=== PATIENT | female | born 1960 | race African-American/Black ===

== ENCOUNTER 2021-11-11 08:06 | Outpatient (CLI) | payer MEDICARE, MEDICAID, SELFPAY ==
--- NOTE | 2021-11-11 | EST_ITS ---
Patient Info Name: Madeline Castaneda Age: 61 years : 1960 Gender: Female Ht: 66 in Wt: 260 lbs BSA: 2.40 m2 HR: 69 bpm BP: 142 / 72 mmHg Heart Rhythm: Sinus Rhythm Exam Date: 11/11/2021 9:26 AM Exam Location: [facility] Stress Patient Status: Outpatient Admit Date: 11/11/2021 Staff Ordering Physician: rosetta Fulton Attending Provider: rosetta Fulton Exercise Technologist: Nicolette Traore CT Exercise Physician: Abhinav De Leon MD Exam Type: CA stress donna w NM Study Info Indications I50.22 - Chronic systolic (congestive) heart failure R06.02 - Shortness of breath A regadenoson stress test was performed. Summary 1. No abnormal ST-T wave changes with lexiscan. 2. Please correlate with nuclear medicine images, reported separately. Protocol: Lexiscan Stress ECG Details Stage: REST Duration (min): 0 min : 57 sec HR (bpm): 70 SBP (mmHg): 142 DBP (mmHg): 72 Stage: REST Duration (min): 7 min : 16 sec HR (bpm): 74 SBP (mmHg): 142 DBP (mmHg): 72 Stage: STAGE 1 Duration (min): 1 min : 0 sec HR (bpm): 81 SBP (mmHg): 135 DBP (mmHg): 93 Stage: RECOVERY Duration (min): 1 min : 0 sec HR (bpm): 90 SBP (mmHg): 135 DBP (mmHg): 93 Stage: RECOVERY Duration (min): 2 min : 0 sec HR (bpm): 85 SBP (mmHg): 135 DBP (mmHg): 93 Stage: RECOVERY Duration (min): 3 min : 0 sec HR (bpm): 85 SBP (mmHg): 132 DBP (mmHg): 63 Stage: RECOVERY Duration (min): 3 min : 4 sec HR (bpm): 85 SBP (mmHg): 132 DBP (mmHg): 63 Rest HR: 74 bpm Peak HR: 92 bpm Rest Sys BP: 142 mmHg Peak Sys BP: 135 mmHg Max Pred HR: 159 bpm % Max Pred HR: 58 % Target HR: 135 bpm Max RPP: 12,420 bpm*mmHg Target HR Summary: Hemodynamic response to exercise was normal BP Response: Normal blood pressure response Total Time: 1 min : 0 sec Rest Frankel BP: 72 mmHg Peak Frankel BP: 93 mmHg Total Dose: 0.4 mg Resting ECG Normal sinus rhythm - normal ECG. Stress ECG No abnormal ST/T wave changes with exercise. Arrhythmias Occasional PVCs. Report Signatures
--- NOTE | ~2021-11-11 | US_ITS ---
EXAMINATION: US arterial duplex LE DATE: 11/11/2021 12:24 INDICATION: Lower limb pain. Hyperlipidemia. Hypertension. TECHNIQUE: Multiple grayscale and Doppler ultrasound images of the arteries of the bilateral lower li mbs were obtained. COMPARISON: None FINDINGS: Right lower limb: Triphasic waveforms at the right common femoral, profunda femoral and femoral arteries and biphasic w aveforms of the right popliteal, posterior tibial, dorsalis pedis and anterior tibial arteries, all w ith brisk systolic upstrokes. Minimal scattered atherosclerotic plaques. No evident hemodynamically s ignificant stenosis on grayscale imaging. Left lower limb: Triphasic waveform at the left common femoral artery and biphasic waveforms at the left profunda femo ral, femoral, popliteal, posterior tibial, dorsalis pedis and anterior tibial arteries, all with bris k systolic upstrokes. Minimal scattered atherosclerotic plaque with no evident minimally significant stenosis on grayscale imaging. IMPRESSION: 1. Minimal scattered atherosclerotic plaque without evident hemodynamically significant stenosis in t he arteries of the bilateral lower limbs with brisk systolic upstrokes throughout the arteries of bot h lower limbs. Reviewed, dictated and finalized at location B. IMPRESSION: 1. Minimal scattered atherosclerotic plaque without evident hemodynamically sig nificant stenosis in the arteries of the bilateral lower limbs with brisk systo lic upstrokes throughout the arteries of both lower limbs.
--- NOTE | ~2021-11-11 | NM_ITS ---
EXAMINATION: NM donna stress w perfusion DATE: 11/11/2021 10:33 INDICATION: Family history of myocardial infarction TECHNIQUE: Rest images were obtained following intravenous administration of 9.86 mCi Tc99m tetrofosm in (Myoview). The patient was infused intravenously with Lexiscan (Regadenoson). Then, 31.3 mCi Tc99m tetrofosmin (Myoview) was administered intravenously, and stress images were obtained. Data was norma nstructed into short axis and horizontal and vertical long axis SPECT images. Gated SPECT images were also obtained. COMPARISON: None. FINDINGS: There is no definite reversible or fixed perfusion abnormality to suggest ischemia or infar ction. There is normal left ventricular chamber size, wall motion and ejection fraction. Left ventr icular ejection fraction measures >70%. IMPRESSION: 1. Normal myocardial perfusion at rest and during stress. 2. Left ventricular ejection fraction measuring >70%. Reviewed, dictated and finalized at location B.
== END 2021-11-11 08:07 | disposition home or self-care (01) ==
PROVIDERS: PCP Nurse Practitioner Family
DX: I11.0 Hypertensive heart disease with heart failure (principal); M79.661 Pain in right lower leg; E78.5 Hyperlipidemia, unspecified; I70.203 Unspecified atherosclerosis of native arteries of extremities, bilateral legs; Z82.49 Family history of ischemic heart disease and other diseases of the circulatory system; Z13.6 Encounter for screening for cardiovascular disorders; R06.02 Shortness of breath; M79.89 Other specified soft tissue disorders; R60.0 Localized edema; M79.604 Pain in right leg; I50.22 Chronic systolic (congestive) heart failure; Z51.81 Encounter for therapeutic drug level monitoring; Z79.899 Other long term (current) drug therapy; I49.3 Ventricular premature depolarization
CPT/HCPCS: 78452; 93017; 93925; A9502; J2785

== ENCOUNTER 2021-11-20 09:02 | Outpatient (CLI) | payer MEDICARE, MEDICAID, SELFPAY ==
--- NOTE | ~2021-11-20 | US_ITS ---
EXAMINATION: US venous doppler [facility] DATE: 11/20/2021 10:21 INDICATION: Right lower limb pain. Bilateral lower limb swelling. TECHNIQUE: Grayscale ultrasound images without and with compression and Doppler ultrasound images of the bilateral lower extremity veins were obtained. COMPARISON: None. FINDINGS: The visualized portions of right common femoral vein, profunda (deep) femoral vein, femoral vein, pop liteal vein, posterior tibial veins, peroneal veins, gastrocnemius vein and greater saphenous vein ou tflow are patent. Right standing venous mapping: reflux seconds duration; vein size. Greater saphenous origin: 0 seconds; 6.9 mm. Greater saphenous mid thigh:------ 0 seconds; 3.7 mm. Greater saphenous below knee:--- 0 seconds; 2.2 mm. Lesser saphenous proximally:------ 0 seconds; 2.5 mm. Lesser saphenous distally: 0 seconds; 2.4 mm. The visualized portions of left common femoral vein, profunda femoral vein, femoral vein, popliteal v ein, posterior tibial veins, peroneal veins, gastrocnemius vein and greater saphenous vein outflow ar e patent. Left standing venous mapping: reflux seconds duration; vein size. Greater saphenous origin: 1.7 seconds; 8.0 mm. Greater saphenous high thigh:----- 3.3 seconds; 11.0 mm. Greater saphenous mid thigh:------ 4.5 seconds; 5.6 mm. Greater saphenous low thigh:------ >4.7 seconds; 4.4 mm. Greater saphenous below knee:--- >4.5 seconds; 2.8 mm. Greater saphenous distal calf:------ 0.5 seconds; 2.3 mm. Lesser saphenous proximally:------ 0 seconds; 3.0 mm. Lesser saphenous distally: 0.2 seconds; 2.0 mm. IMPRESSION: 1. No deep venous thrombosis in either lower limb. 2. Significant venous reflux throughout the majority of the left greater saphenous vein. Reviewed, dictated and finalized at location B. IMPRESSION: 1. No deep venous thrombosis in either lower limb. 2. Significant venous reflux throughout the majority of the left greater saphen ous vein.
== END 2021-11-20 09:03 | disposition home or self-care (01) ==
PROVIDERS: PCP Nurse Practitioner Family
DX: R60.0 Localized edema (principal)
CPT/HCPCS: 93970